=== PATIENT | female | born 1995 | race Caucasian/White ===

== ENCOUNTER 2016-09-20 08:37 | Emergency (ER) | payer MEDICAID ==
[~2016-09-20] VITALS: Ht 157.5 cm; Wt 69.4 kg
[2016-09-20 08:37] VITALS: BP 106/68; PULSE 74; RESP 19; TEMP 97.3; O2SAT 98
--- NOTE | 2016-09-20 08:37 | NUR ---
BROUGHT BACK TO BED #5 AND TRIAGED. REPORT GIVEN TO PANCHITO
--- NOTE | 2016-09-20 08:40 | NUR ---
ER at bedside examining patient.
--- NOTE | 2016-09-20 08:42 | NUR ---
Pt presenst to Ed c/o vag spotting x 1 with .Pt reports being approximately 3wks by best estimate. Pt AAOx4 h/o psych. Pt reports only mild spotting requesting US.
[2016-09-20] MEDS ORDERED: ACETAMINOPHEN 325 MG TABLET PO ONE (09:00)
--- NOTE | 2016-09-20 09:10 | NUR ---
Pt tolerated medication well.
[2016-09-20 09:23] LABS: BASOPHILS % (AUTO) 0.5 % (0.0-2.0); EOSINOPHILS # (AUTO) 0.1 K/uL (0.0-0.4); EOSINOPHILS % (AUTO) 1.4 % (0.0-4.0); HEMATOCRIT 41.2 % (36-48); HEMOGLOBIN 13.9 g/dL (12.0-16.0); LYMPHOCYTES # (AUTO) 1.8 K/uL (1.0-5.5); LYMPHOCYTES % (AUTO) 20.8 % (20.5-51.5); MEAN CORPUSCULAR HEMOGLOBIN 30 pg (27-31); MEAN CORPUSCULAR HGB CONC 34 % (32-36); MEAN CORPUSCULAR VOLUME 89 fL (79.0-98.0); MONOCYTES # (AUTO) 0.7 K/uL (0.0-1.0); MONOCYTES % (AUTO) 7.6 % (1.7-9.3); NEUTROPHILS # (AUTO) 6.2 K/uL (1.8-7.7); NEUTROPHILS % (AUTO) 69.7 % (40.0-70.0); PLATELET COUNT (AUTO) 189 K/uL (130-430); RED BLOOD CELL COUNT(AUTO) 4.64 MIL/uL (4.2-6.2); RED CELL DISTRIBUTION WIDTH 12.7 % (9.0-15.0); WHITE BLOOD COUNT (AUTO) 8.8 K/uL (4.8-10.8)
[2016-09-20 09:30] LABS: BILIRUBIN,URINE NEGATIVE (NEGATIVE); BLOOD, URINE NEGATIVE (NEGATIVE); CLARITY/URINE CLEAR (CLEAR); COLOR,URINE YELLOW (YELLOW); GLUCOSE,URINE NEGATIVE (NEGATIVE); KETONES,URINE NEGATIVE (NEGATIVE); LEUKOCYTE ESTERASE ,URINE NEGATIVE (NEGATIVE); NITRITE, URINE NEGATIVE (NEGATIVE); PH,URINE 6.5 (5.0-8.0); PROTEIN URINE NEGATIVE (NEGATIVE)
[2016-09-20 09:36] LABS: PROTHROMBIN TIME 10.4 SECS (9.5-12.5)
[2016-09-20 09:48] LABS: CALCIUM 8.8 mg/dL (8.4-11.0); CREATININE 0.65 mg/dL (0.55-1.30); POTASSIUM 3.9 mmol/L (3.5-5.1)
[2016-09-20 10:36] VITALS: BP 127/74; PULSE 77; RESP 19; TEMP 97.3; O2SAT 98
--- NOTE | 2016-09-20 10:36 | NUR ---
Patient given written and verbal discharge instructions and verbalizes understanding. ER MD discussed with patient the results and treatment provided. Given copies of tests performed in ER. Patient in stable condition. ID arm band removed. Rx of TYLENOL given. Patient educated on pain management and to follow up with PMD. Pain Scale 0/10. Opportunity for questions provided and answered.
== END 2016-09-20 10:36 | disposition home or self-care (01) ==
LOC: SED 08:37
DX: O20.0 Threatened abortion (principal); Z3A.01 Less than 8 weeks gestation of pregnancy; O99.341 Other mental disorders complicating pregnancy, first trimester; F90.9 Attention-deficit hyperactivity disorder, unspecified type
CPT/HCPCS: 36415; 76805-TC; 80048; 81003; 81025; 84702-TC; 85025; 85610-TC; 85730-TC; 86900; 86901; 99285